=== PATIENT | male | born 1985 | race Caucasian/White ===

== ENCOUNTER 2016-04-27 18:54 | Emergency (ER) | payer MEDICAID ==
[2015-11-11 08:23] VITALS: BMI 30.9
[~2016-04-27 18:54] MED LIST: CELEXA10 MG PO; DEMEROL50 MG PO; KLONOPIN1 MG PO; NORVASC5 MG PO; OXYCONTIN30 MG PO; TRAZODONE HCL50 MG PO
== END 2016-04-27 21:15 | disposition left against medical advice (07) ==
LOC: D.ER 18:54
DX: R51 Headache (principal); M54.2 Cervicalgia

== ENCOUNTER 2016-06-28 13:40 | Emergency (ER) | payer MEDICAID ==
[2016-08-26] MEDS ORDERED: DEXILANT30 MG PO (12:50)
[2016-08-26] MEDS ORDERED: ROBAXIN500 MG PO (12:51)
[2016-08-26] MEDS ORDERED: HYDROCODON-ACE1 EAC7 PO (12:51)
== END 2016-06-28 18:05 | disposition home or self-care (01) ==
LOC: D.ER 13:40
DX: S16.1XXA Strain of muscle, fascia and tendon at neck level, initial encounter (principal); W19.XXXA Unspecified fall, initial encounter; Y93.89 Activity, other specified; Y92.018 Other place in single-family (private) house as the place of occurrence of the external cause; S39.012A Strain of muscle, fascia and tendon of lower back, initial encounter; M62.838 Other muscle spasm; F17.200 Nicotine dependence, unspecified, uncomplicated

== ENCOUNTER → 2016-07-29 10:00 | Outpatient (CLI) | payer MEDICAID ==
[2015-11-11 08:23] VITALS: BMI 30.9
== END | disposition home or self-care (01) ==
LOC: D.MRI 07-27 11:00
DX: M93.261 Osteochondritis dissecans, right knee (principal)

== ENCOUNTER 2016-08-27 05:52 | Day surgery (SDC) | payer MEDICAID ==
[2016-08-26 14:03] LABS: HEMATOCRIT 41.5 % (42.0-54.0); HEMOGLOBIN 14.1 g/dL (13.5-17.5); MCH 31.5 pg (26.0-34.0); MCV 92.6 fL (80.0-100.0); MEAN PLATELET VOLUME 9.3 fL (7.4-10.4); RBC 4.48 10x6/uL (4.20-6.10); RDW 12.9 % (11.5-14.5); WBC 6.5 10x3/uL (4.8-10.8)
[~2016-08-27] VITALS: Ht 175.3 cm; Wt 89.8 kg
--- NOTE | ~2016-08-27 | OP ---
PATIENT NAME: SITA DIANA MEDICAL RECORD: [id number] :84 LOCATION:D.OPS ADMISSION DATE: SURGEON: DEBRA RAE DATE OF OPERATION: 08/27/2016 SURGEON: DEBRA Rae DPM. PREOPERATIVE DIAGNOSES: 1. Hallux abductovalgus, left foot. 2. Sesamoiditis, left foot. POSTOPERATIVE DIAGNOSES: 1. Hallux abductovalgus, left foot. 2. Sesamoiditis tibial sesamoid, left foot. PROCEDURE: 1. Luis bunionectomy, left foot. 2. Excision of tibial sesamoid, left foot. ANESTHESIA: Local with monitored anesthesia care. HEMOSTASIS: Pneumatic ankle tourniquet inflated to 250 mmHg. ESTIMATED BLOOD LOSS: Minimal. MATERIALS: A 3-0 Vicryl, 4-0 nylon, one Giraffe Friend 2.5 x 20 mm headless Dart-Fire screw. INJECTABLES: 20 cc of 0.5% bupivacaine plain. 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 He was treated for that conservatively and did not improve with boot immobilization. We have discussed the proposed procedures. Risks and benefits were discussed. Complications were reviewed. His questions were answered. He was appropriately consented for the above-mentioned procedures. The patient was brought in the operating room and placed in the operating table in supine position. A timeout was called with Dr. Rae, who identified the patient, the surgical sites and the surgeries to be performed. Once appropriate anesthesia was obtained, the foot was prepped and draped in the usual aseptic manner. The pneumatic ankle tourniquet was inflated to 250 mmHg around the well-padded left ankle. Procedure #1: Luis bunionectomy. Attention was directed to the dorsal aspect of the first metatarsophalangeal joint where a 6 cm linear incision was made. This incision was carried deep through soft tissue with care being taken to retract all vital neurovascular structures. All bleeders were cauterized along the way. First intermetatarsal space was then entered utilizing both sharp and blunt dissection. The fibular sesamoidal ligament and the conjoined tendon of the adductor hallucis muscle were identified and sharply transected. Attention was then redirected to the dorsal aspect of the first metatarsophalangeal joint where all periosteum was reflected from the head of the first metatarsal and the OPERATIVE REPORT [id number] SITA DIANA D base of the proximal phalanx. The hypertrophied medial eminence of the first metatarsal was identified. Utilizing a sagittal saw, the hypertrophied medial eminence was resected. Next, utilizing a sagittal saw, a V-shaped osteotomy was created in the head of the first metatarsal with the apex oriented distally. This was a through and through osteotomy. The capital fragment was then translocated laterally and impacted upon the first metatarsal shaft. Next, utilizing director of surgery's recommended technique, one 2.5 mm headless screw was placed across the osteotomy. All remaining overhanging bone from the medial aspect of the first metatarsal shaft was removed with the sagittal saw. All sharp bone edges were also removed with sagittal saw. The surgical site was irrigated with copious amounts of normal sterile saline via bulb syringe. The periosteum was then reapproximated and coapted utilizing 3-0 Vicryl. The subQ was then reapproximated and coapted utilizing 3-0 Vicryl. The skin was then reapproximated and coapted using 4-0 nylon. PROCEDURE #2: Excision of tibial sesamoid, left foot. Attention was directed to the plantar surface of the left foot where a 3-cm linear incision was made directly over the tibial sesamoid. This incision was carried deep through soft tissue with care being taken to retract all vital neurovascular structures. All bleeders were cauterized along the way. The tibial sesamoid was identified at the base of this incision. Next, utilizing sharp dissection, the tibial sesamoid was sharply ____ and freed from all soft tissue attachments and passed from the field. The surgical site was then investigated for any remaining pathological tissue and none was noted. The surgical site was then irrigated with copious amounts of normal sterile saline via bulb syringe. The subQ was then reapproximated and coapted utilizing 3-0 Vicryl. The skin was then reapproximated and coapted using 4-0 nylon. The sesamoid was sent to pathology. A dressing consisting of Xeroform, 4 x 4's, Kerlix, and Hollis bandage was applied to the left foot. The pneumatic ankle tourniquet was deflated and capillary refill time is noted to be immediate to all digits of the left foot. The patient tolerated the procedure and anesthesia well. He left the operating room with vital signs stable and capillary refill time intact. The patient will be discharged home with instructions to ice and elevate the left foot. He has the boot from previous treatment and he is utilizing the boot to help offload the foot. He has my cell phone number for any after hours difficulties and there were no complications with this procedure. TRANSINT:[id number] Voice Confirmation ID: [id number] DOCUMENT ID: [id number] DEBRA REA CC: [id number] DICTATION DATE: 08/27/16 1644 PRIMER INSPECTOR: 08/28/16 0216 [facility] 08/27/16 [facility] [address] [place] [address]
[~2016-08-27 05:52] MED LIST changes: +DEXILANT30 MG PO; +HYDROCODON-ACE1 EAC7 PO; +ROBAXIN500 MG PO
[2016-08-27 11:35] VITALS: BP 133/82; Ht 175.3 cm; Wt 89.8 kg
--- NOTE | 2016-08-27 17:05 | NUR ---
1525-PT WITH HOB ELEVATED. LEFT FOOT ELEVATED WITH ICE PACK APPLIED. AT BEDSIDE. VSS. 1555-FULL LIQUIDS TOLERATED. UP OOB WITH BOOT TO LEFT FOOT, VOIDED WITHOUT DIFFICUTLY. IV D/C'D, CATHETER INTACT. 1610-DISCHARGE INSTRUCTIONS COMPLETED, PT VERBALIZED UNDERSTANDING. PAPERWORK SIGNED. 1615-PT DISCHARGED VIA WHEELCHAIR WITH .
== END 2016-08-27 16:15 | disposition home or self-care (01) ==
LOC: D.OPS 05:52 → D.PAN 11:30 → D.OPS 11:30
PROVIDERS: Anesthesiology
DX: M20.12 Hallux valgus (acquired), left foot (principal); M25.872 Other specified joint disorders, left ankle and foot; S82.892A Other fracture of left lower leg, initial encounter for closed fracture; X58.XXXA Exposure to other specified factors, initial encounter

== ENCOUNTER 2016-11-30 06:42 | Day surgery (SDC) | payer MEDICAID ==
[~2016-11-30] VITALS: Ht 175.3 cm; Wt 93.0 kg
[2016-11-30 07:19] LABS: HEMATOCRIT 43.5 % (42.0-54.0); HEMOGLOBIN 15.4 g/dL (13.5-17.5); MCH 32.6 pg (26.0-34.0); MCHC 35.4 g/dL (31.0-37.0); MCV 92.2 fL (80.0-100.0); MEAN PLATELET VOLUME 9.4 fL (7.4-10.4); RBC 4.72 10x6/uL (4.20-6.10); RDW 12.2 % (11.5-14.5); WBC 6.2 10x3/uL (4.8-10.8)
[2016-11-30] MEDS ORDERED: HYDROCODONE-APA1 TAB PO ×2 (07:30→12:25)
[2016-11-30] MEDS ORDERED: REQUIP0.5 MG PO (07:30)
[2016-11-30] MEDS ORDERED: PEPCID20 MG PO (07:31)
[2016-11-30] MEDS ORDERED: ATARAX 25 MG TA25 MG PO (07:32)
[2016-11-30 07:41] VITALS: BP 132/86; Ht 175.3 cm; Wt 93.0 kg
--- NOTE | 2016-12-03 11:31 | OP ---
PATIENT NAME: SITA DIANA MEDICAL RECORD: [id number] :83 [facility] AD[facility]ION DATE: SURGEON: CHRIS GRADY MD DATE OF OPERATION: 11/30/2016 PREOPERATIVE DIAGNOSIS: Patellofemoral syndrome. POSTOPERATIVE DIAGNOSIS: Patellofemoral syndrome. PROCEDURE: Arthroscopic lateral release of the right knee. SURGEON: Chris Grady MD. ANESTHESIA: General. INTRAOPERATIVE COMPLICATIONS: None. SUMMARY OF PATHOLOGIC FINDINGS: With the patient having prior surgery to repair a large chondral defect in his lateral patellar facet, he was in great condition with very minimal chondromalacia. He had, however, redeveloped very tight lateral retinaculum and his symptoms had begun again. He failed bracing and physical therapy. OPERATIVE SUMMARY IN DETAIL: After obtaining the appropriate preoperative orthopedic surgery consent as well as anesthetic consultation, evaluation and clearance, the patient was brought to the operating room and placed on the operating table in supine position. After general laryngeal mask was administered, tourniquet was placed about the proximal aspect of the right upper extremity. Right lower extremity was prepped and draped in routine sterile fashion. The leg was elevated and exsanguinated, tourniquet inflated to 350 mmHg. Routine inferolateral portal was established followed by superior medial portal and inferomedial portal. Diagnostic arthroscopy did reveal the above findings. Attention was turned to the lateral retinaculum to a medial portal view. Lateral retinaculum was released using the [place] tissue ablation system. Having completed this, arthroscopy portals were closed in routine interrupted fashion using 4-0 Prolene. The knee was insufflated with 30 cc of 0.25% Marcaine with epinephrine and 40 mg of Depo-Medrol. Sterile dressings were applied. Tourniquet was deflated. The patient was awakened, taken to recovery room in stable condition. All final needle and sponge counts were correct. TRANSINT:[id number] Voice Confirmation ID: [id number] DOCUMENT ID: [id number] CHRIS GRADY MD at 1131 CC: [id number] DICTATION DATE: 11/30/16 1223 BIOMEDICAL SPECIALIST: 11/30/162010 [facility] 11/30/16 [place] [address]
== END 2016-11-30 14:09 | disposition home or self-care (01) ==
LOC: D.OPS 06:42 → D.PAN 09:15 → D.OPS 11:00 → D.PAN 11:00 → D.OPS 14:09
PROVIDERS: Anesthesiology
DX: M22.2X1 Patellofemoral disorders, right knee (principal); F17.200 Nicotine dependence, unspecified, uncomplicated; I10 Essential (primary) hypertension; K44.9 Diaphragmatic hernia without obstruction or gangrene; K21.9 Gastro-esophageal reflux disease without esophagitis; Z01.812 Encounter for preprocedural laboratory examination

== ENCOUNTER → 2017-10-12 09:15 | Outpatient (CLI) | payer MEDICARE ==
[2016-11-30 07:41] VITALS: BMI 30.3
[~2017-10-12 09:15] MED LIST changes: +ATARAX 25 MG TA25 MG PO; +ATIVAN0.5 MG PO; -DEXILANT30 MG PO; +DEXILANT60 MG PO; +HYDROCODONE-APA1 TAB PO; +NORVASC10 MG PO; -NORVASC5 MG PO; +PEPCID20 MG PO; +REQUIP0.5 MG PO; +VENTOLIN HFA18 GM INH
== END | disposition home or self-care (01) ==
LOC: D.NM 09:15
DX: K21.9 Gastro-esophageal reflux disease without esophagitis (principal); R10.9 Unspecified abdominal pain

== ENCOUNTER 2017-10-28 09:55 | Day surgery (SDC) | payer MEDICARE ==
[~2017-10-28] VITALS: Ht 180.3 cm; Wt 126.1 kg
--- NOTE | ~2017-10-28 | OP ---
PATIENT NAME: SITA DIANA MEDICAL RECORD: [id number] :84 LOCATION:D[facility]OPS ADMISSION DATE: SURGEON: FLAKITO CURTIS MD DATE OF OPERATION: 10/28/2017 PREOPERATIVE DIAGNOSES: 1. Biliary dyskinesia. 2. Hypertension. POSTOPERATIVE DIAGNOSES: 1. Biliary dyskinesia. 2. Hypertension. PROCEDURE: Laparoscopic cholecystectomy. SURGEON: Flakito Curtis MD REPORT OF PROCEDURE: The patient's abdomen was prepped and draped in sterile fashion. A cutdown was made on the superior aspect of the umbilicus, 0 Vicryls were placed in the fascia bilaterally and the fascia was incised with a 15-blade. I then bluntly entered the peritoneal cavity and placed a 12-mm Yelitza port. Under direct visualization, a 5 mm trocar was placed in the epigastrium and 2 more 5-mm trocars were placed in the right subcostal region. The gallbladder was grasped and elevated. The cystic artery and cystic duct were dissected free and these were clipped proximally and distally and ligated in standard fashion. The gallbladder was then placed into an EndoCatch bag. The right upper quadrant was then irrigated out and any bleeding from the liver bed was treated with electrocautery. At this point, the ports and insufflation were then removed and the gallbladder was taken out through the umbilicus. The umbilical fascia was closed with interrupted 0 Vicryls times 3. The wounds were then irrigated out with normal saline, infused with 10 mL of 0.25% Marcaine with epinephrine. Skin incisions were then dressed appropriately. COMPLICATIONS: None. CONDITION: Stable. ANESTHESIA: General endotracheal and local. BLOOD LOSS: Minimal. TRANSINT:[id number] Voice Confirmation ID: [id number] DOCUMENT ID: [id number] FLAKITO CURTIS MD at 0918 CC: [id number] DICTATION DATE: 10/28/171956 PV INSTALLER TECH: 10/29/[address] [facility] 10/28/[address] [address]
[2017-10-28 10:17] LABS: BASOPHILS 0.3 % (0-2); EOSINOPHILS 3.7 % (0-7); HEMATOCRIT 44.1 % (42.0-54.0); HEMOGLOBIN 15.4 g/dL (13.5-17.5); IMMATURE GRANULOCYTES 0.5 % (0-5); LYMPHOCYTES 21.2 % (15-50); MCH 32.4 pg (26.0-34.0); MCHC 34.9 g/dL (31.0-37.0); MCV 92.8 fL (80.0-100.0); MEAN PLATELET VOLUME 9.5 fL (7.4-10.4); MONOCYTES 12.6 % (2-11); NEUTROPHILS 61.7 % (40-80); PLATELET COUNT 231 10x3/uL (130-400); RBC 4.75 10x6/uL (4.20-6.10); RDW 12.5 % (11.5-14.5); WBC 6.4 10x3/uL (4.8-10.8)
[2017-10-28 10:56] LABS: CALC OSMOLALITY 278 mosm/kg (275-300); CALCIUM 9.4 mg/dL (8.5-10.1); CARBON DIOXIDE 30.1 mmol/L (21.0-32.0); CHLORIDE - SERUM 100 mmol/L (98-107); GLUCOSE 101 mg/dL (74-106); POTASSIUM - SERUM 4.2 mmol/L (3.5-5.1); SODIUM 139 mmol/L (136-145); UREA NITROGEN 16 mg/dL (7-18); eGFR NON AFRICAN AMERICAN > 90 mL/min (90-120)
[2017-10-28 11:10] VITALS: BP 163/94; Ht 180.3 cm; Wt 126.1 kg
[2017-10-28] MEDS ORDERED: HYDROCODONE-APA1 TAB PO (19:54)
[2017-10-28 20:52] VITALS: BP 138/92
== END 2017-10-28 21:54 | disposition home or self-care (01) ==
LOC: D.OPS 09:55 → D.PAN 12:45 → D.M3 20:43 → D.OPS 21:54
PROVIDERS: Anesthesiology
DX: K82.8 Other specified diseases of gallbladder (principal); I10 Essential (primary) hypertension

== ENCOUNTER 2018-03-04 18:32 | Emergency (ER) | payer MEDICARE ==
[~2018-03-04] VITALS: Ht 180.3 cm; Wt 100.0 kg
[2018-03-04 18:42] VITALS: Ht 180.3 cm; Wt 100.0 kg
[2018-03-04 19:02] LABS: BASOPHILS 0.2 % (0-2); EOSINOPHILS 1.5 % (0-7); HEMATOCRIT 43.3 % (42.0-54.0); HEMOGLOBIN 15.5 g/dL (13.5-17.5); IMMATURE GRANULOCYTES 0.4 % (0-5); MCH 32.2 pg (26.0-34.0); MCHC 35.8 g/dL (31.0-37.0); MCV 89.8 fL (80.0-100.0); MEAN PLATELET VOLUME 9.5 fL (7.4-10.4); MONOCYTES 9.5 % (2-11); NEUTROPHILS 73.4 % (40-80); PLATELET COUNT 206 10x3/uL (130-400); RBC 4.82 10x6/uL (4.20-6.10); RDW 12.5 % (11.5-14.5); WBC 8.6 10x3/uL (4.8-10.8)
[2018-03-04 19:15] LABS: ALBUMIN 4.1 g/dL (3.4-5.0); ALKALINE PHOSPHATASE 109 U/L (46-116); ALT (SGPT) 125 U/L (10-68); BILIRUBIN - TOTAL 1.08 mg/dL (0.2-1.3); CALC OSMOLALITY 262 mosm/kg (275-300); CALCIUM 8.5 mg/dL (8.5-10.1); CARBON DIOXIDE 24.8 mmol/L (21.0-32.0); CHLORIDE - SERUM 94 mmol/L (98-107); CREATININE - SERUM 0.9 mg/dL (0.6-1.3); GLUCOSE 111 mg/dL (74-106); PROTEIN - SERUM 8.1 g/dL (6.4-8.2); SODIUM 131 mmol/L (136-145); UREA NITROGEN 10 mg/dL (7-18); eGFR NON AFRICAN AMERICAN > 90 mL/min (90-120)
[2018-03-04 19:31] LABS: APPEARANCE CLEAR (CLEAR); BILIRUBIN 1+ (NEGATIVE); COLOR DK YELLOW (YELLOW); GLUCOSE NEGATIVE (NEGATIVE); KETONE NEGATIVE (NEGATIVE); NITRITE NEGATIVE (NEGATIVE); PROTEIN TRACE mg/dL (NEGATIVE); SPECIFIC GRAVITY 1.025 (1.005-1.020); UROBILINOGEN NORMAL (NORMAL)
[2018-03-04 19:32] LABS: RED CELLS - URINE 0-5 /hpf (0-5); WHITE CELLS - URINE 0-5 /hpf (0-5)
[2018-03-04 19:33] LABS: BACTERIA FEW /hpf (NONE SEEN)
[2018-03-04] MEDS ORDERED: NORCO 10-325 TA1 TAB PO (23:59)
[2018-03-04] MEDS ORDERED: FLAGYL500 MG PO (23:59)
[2018-03-04] MEDS ORDERED: VALIUM 2 MG TAB2 MG PO (23:59)
[2018-03-04] MEDS ORDERED: CIPRO500 MG PO (23:59)
[2018-03-04] MEDS ORDERED: PHENERGAN25 M1 PO (23:59)
[2018-03-05 00:39] VITALS: BP 133/80
== END 2018-03-05 00:40 | disposition home or self-care (01) ==
LOC: D.ER 18:32
PROVIDERS: Family Medicine
DX: K52.9 Noninfective gastroenteritis and colitis, unspecified (principal); I10 Essential (primary) hypertension; F17.200 Nicotine dependence, unspecified, uncomplicated

== ENCOUNTER → 2018-06-16 09:22 | Outpatient (CLI) | payer MEDICARE ==
[2018-03-04 18:42] VITALS: BMI 30.7
[~2018-06-16 09:22] MED LIST changes: +CIPRO500 MG PO; +FLAGYL500 MG PO; +NORCO 10-325 TA1 TAB PO; +PHENERGAN25 M1 PO; +VALIUM 2 MG TAB2 MG PO
== END | disposition home or self-care (01) ==
LOC: D.US 06-09 10:00
PROVIDERS: ATTEND General Practice
DX: R94.5 Abnormal results of liver function studies (principal)

== ENCOUNTER → 2018-09-29 08:04 | Outpatient (CLI) | payer MEDICARE ==
[2018-03-04 18:42] VITALS: BMI 30.7
--- NOTE | 2018-10-03 18:38 | ST ---
PATIENT:SITA DIANA MEDICAL RECORD: [id number] SEX: M LOCATION:[facility] ORDER #: ADMISSION DATE: 09/29/18 AGE OF PATIENT: 33 REFERRING PHYSICIAN: INTERPRETING PHYSICIAN: ANJALI BLANCO MD DATE OF SERVICE: 09/29/2018 Nuclear Stress Test INDICATIONS: Chest pain, abnormal ECG, shortness of breath, hypertension, and hyperlipidemia. PROCEDURE IN DETAIL: He was exercised on standard Lexiscan protocol with 33 mCi sestamibi injected at peak stress, 11 mCi used previously for rest images. FINDINGS: Gated SPECT reveals a preserved ejection fraction at 61% with good wall motioning, thickening, and brightening throughout all segments. SPECT Imaging: Cardiolite was used as myocardial fusion agent. There are definite reversible changes inferiorly as well as anteriorly, which includes the basal, mid apical, and inferior segments as well as the apex itself as well and includes the basal and mid anterior segments. The degree of reversibility is mild to moderate. The amount of myocardial involved is large. OVERALL IMPRESSION: This is an abnormal nuclear stress test with reversible changes. This is an [id number] risk abnormal nuclear stress test, reversible changes anteriorly as well as inferiorly suggestive of multivessel coronary artery disease. We will proceed with coronary angiography as a followup study. TRANSINT:[id number] Voice Confirmation ID: [id number] DOCUMENT ID: [id number] ANJALI BLANCO MD at 1838 CC: DIAMANTE VOGEL MD [id number] DICTATION DATE: 09/29/18 1550 PANEL ASSEMBLER: 09/30/18 0025 [facility] CLI 09/29/18 [facility] [address] [place] [id number]
== END | disposition home or self-care (01) ==
LOC: D.HCCARDIO 08:04
PROVIDERS: ATTEND Internal Medicine Interventional Cardiology
DX: R07.9 Chest pain, unspecified (principal)

== ENCOUNTER 2018-10-17 08:11 | Outpatient (CLI) | payer MEDICARE ==
[~2018-10-17] VITALS: Ht 175.3 cm; Wt 102.3 kg
--- NOTE | ~2018-10-17 | HEMODYNAMI ---
PATIENT:SITA DIANA MEDICAL RECORD: [id number] : 83 LOCATION:[facility] ADMISSION DATE: 10/17/18 Generatedon:10/17/201810:57 Patient name: SITA DIANA Patient #: [id number] SSN: [id number] : 1985 Date of study: 10/17/2018 Page: Of Hemodynamic Procedure Report Patient Data Patient Demographics Procedure consent was obtained First Name: SITA Gender: Male Last Name: LEBRON : 1985 [facility] Initial: HOMAR Age: 33 year(s) Patient #: [id number] Race: SSN: [id number] Additional ID: [id number] Contact details Address: [facility] [address] State: [place] City: [place] Zip code: [address] Past Medical History Performed procedures and imaging results Date Procedure Procedure Results Comments Echocardiography History of disease Date Diagnosis Comments Hypertension Allergies Allergen Reaction Date Comments Reported Morphine 10/17/2018 Admission Admission Data Admission Date: 10/17/2018 Admission Time: 8:11 Arrival Date: 10/17/2018 Arrival Time: 0:00 Admit Source: Other Insurance Payor: Private health insurance [facility] #: [id number] Height (in.): 69 BSA: 2.21 (m2) Height (cm.): 175.26 BMI: 34.56 (kg/m2) Weight (lbs.): 234 Weight (kg.): 106.14 Medications upon Admission Medications Dosage Times Administered Last Remarks per Delivery Day Date and Time Statin (any) 10 mg 1 Statin (any) 20 mg 1 Current Diagnosis Diagnosis Description Stable angina Lab Results Lab Result Date: 10/17/2018 Lab Result Time: 0:00 Biochemistry Name Units Result Min Max BUN mg/dl 17 --(---*)-- 7 18 Creatinine mg/dl 1.1 --(--*-)-- 0.6 1.3 eGFR ml/min 81 *-(----)-- 90 120 NONAFRICAN CBC Name Units Result Min Max Hematocrit % 41.9 -*(----)-- 42 54 Hemoglobin g/dl 15 --(-*--)-- 13.5 17.5 Procedure Procedure Types Cath Procedure Diagnostic Procedure [facility] w/Coronaries Sedation Charges Moderate Sedation up to 15 minutes Procedure Description Procedure Date Procedure Date: 10/17/2018 Procedure Start Time: 10:44 Procedure End Time: 10:53 Procedure Staff Name Function David Pantoja MD Performing Physician Lisa Pedraza RT Monitor Darnell Peoples RT Scrub Dolly Palomares RT Scrub Steve Rollins RN Nurse Indication Angina Abnormal ECG Dyspnea with exertion Procedure Data Cath Procedure Fluoroscopy Diagnostic fluoroscopy Total fluoroscopy Time: 2.3 time: 2.3 min min Diagnostic fluoroscopy Total fluoroscopy dose: 433 dose: 433 mGy mGy Contrast Material Contrast Material Type Amount (ml) Isovue 300 50 Entry Location Entry Primary Successful Side Size Upsize Upsize Entry Closure Harris ccessful Closure Location (Fr) 1 (Fr) 2 (Fr) Remarks Device Remarks Radial Right 6 Fr Mechanical artery Short Compression Estimated blood loss: 10 ml Diagnostic catheters Device Type Used For End Catheter Placement DIAGNOSTIC [place] 110cm 5 Procedure Fr catheter ([id number]) Procedure Complications No complications Procedure Medications Medication Administration Route Dosage Oxygen etCO2 Nasal cannula 2 l/min Lidocaine 2% added to field 20 Heparin Flush Bag added to field 2 bags (1000units/500ml NS) 0.9% NaCl I.V. 100 ml/hr Radial Cocktail I.A. 1 syringe (Verapamil 2mg/Nitro 400mcg/Heparin 1500units) Versed I.V. 2 mg Fentanyl I.V. 100 mcg Versed I.V. 2 mg Fentanyl I.V. 100 mcg Versed I.V. 2 mg Fentanyl I.V. 100 mcg Versed I.V. 2 mg Hemodynamics Rest BSA: 2.21 (m2) HGB: 15 (g/dl) O2 Consumption: Estimated: 282.35 (ml/min) O2 Cons umption indexed: Estimated:127.76 (ml/min/m) Heart Rate: 80 (bpm) Snapshots Pre Cath Intra NCS Post Cath Vital Signs Time Heart Resp SPO2 etCO2 NIBP (mmHg) Rhythm Pain Sedation Rate (ipm) (%) (mmHg) Status Level (bpm) 10:29:40 74 16 100 34.5 150/104(119) NSR 0 (11) 10(A) , No pain 10:33:56 90 17 99 20.9 153/110(123) NSR 0 (11) 10(A) , No pain 10:38:06 86 11 95 39.7 135/93(119) NSR 0 (11) 10(A) , No pain 10:42:12 79 16 96 35.2 125/94(112) NSR 0 (11) 10(A) , No pain 10:46:20 85 17 93 54.7 126/86(121) NSR 0 (11) 10(A) , No pain 10:50:23 94 15 95 26.2 122/91(117) NSR 0 (11) 10(A) , No pain 10:54:31 93 13 95 38.2 126/84(114) NSR 0 (11) 10(A) , No pain Medications Time Medication Route Dose Verified Delivered Reason Notes Effectiveness by by 10:32:55 Oxygen etCO2 2 l/min David Wilson used for Nasal Kit Rollins RN procedure cannula 10:33:09 Lidocaine 2% added 20ml David Hernandez for local to vial Kit Pantoja MD anesthetic field 10:33:15 Heparin Flush added 2 bags David Hernandez used for Bag to Kit Pantoja MD procedure (1000units/500ml field NS) 10:33:24 0.9% NaCl I.V. 100 David Wilson Per ml/hr Kit Rollins RN physician 10:33:37 Radial Cocktail I.A. 1 David Hernandez for (Verapamil syringe Kit Pantoja MD vasodilation 2mg/Nitro 400mcg/Heparin 1500units) 10:34:55 Versed I.V. 2 mg David Buffie for sedation Kit Rollins RN 10:35:01 Fentanyl I.V. 100 mcg David Buffie for sedation Kit Rollins RN 10:39:45 Versed I.V. 2 mg David Buffie for sedation Kit Rollins RN 10:39:49 Fentanyl I.V. 100 mcg Davidlisa Jonesie for sedation Kit Rollins RN 10:44:06 Versed I.V. 2 mg David Buffie for sedation Kit Rollins RN 10:44:10 Fentanyl I.V. 100 mcg David Buffie for sedation Kit Rollins RN 10:48:15 Versed I.V. 2 mg David Wilson for sedation Kit Rollins RN Procedure Log Time Note 10:08:08 Informed consent obtained and on chart 10:11:11 Patient allergic to Morphine 10:11:28 Arrival Date: 10/17/2018 12:00:00 AM 10:11:56 Admit Source: Other 10:11:57 Insurance Payor : Private health insurance 10:12:05 Patient Height : 69 inches 10:12:09 Patient Weight : 234 lbs 10:14:41 Current Diagnosis : Stable angina 10:15:25 Diagnostic Cath Status : Elective 10:15:26 PCI Cath Status : Elective 10:15:53 Indication : Angina 10:16:02 Indication : Abnormal ECG 10:16:13 Indication : Dyspnea with exertion 10:18:55 Procedure Status Elective Heart Cath (OP). 10:18:56 Time tracking: Regular hours (M-F 7:00 - 5:00) 10:19:00 Plan of Care:Hemodynamics will remain stable., Cardiac rhythm will remain stable., Comfort level will be maintained., Respiratory function will remain adequate., Patient/ family verbilizes understanding of procedure., Procedure tolerated without complication., Recovers from procedure without complications.. 10:19:04 Steve Rollins RN sent for patient. Start room use. 10:21:10 Lab Result : BUN 17 mg/dl 10:21:10 Lab Result : Creatinine 1.1 mg/dl 10:21:10 Lab Result : Hemoglobin 15 g/dl 10:21:10 Lab Result : eGFR NONAFRICAN 81 ml/min 10:21:10 Lab Result : Hematocrit 41.9 % 10:24:34 Patient received from Pre/Post Procedure Room to CCL 1 Alert and oriented. Tansferred to table in Supine position. 10:24:35 Warm blankets applied, and lynn hugger turned on for patient comfort. 10:24:35 Correct patient and procedure confirmed by team. 10:24:39 ECG and BP/O2 sat monitors applied to patient. 10:30:20 Baseline sample Acquired. 10:30:24 Rhythm: sinus rhythm 10:30:26 Full Disclosure recording started 10:31:01 H&P Date Dictated: 09/15/2018 Within 30 days and on chart.. 10:31:02 Pre-procedure instructions explained to patient. 10:31:03 Pre-op teaching completed and patient verbalized understanding. 10:31:05 Family in patients room. 10:31:07 Patient NPO since Midnight. 10:31:09 Is the patient allergic to Iodine/contrast media? No. 10:31:26 Is patient on blood thinner?No 10:31:28 Patient diabetic? No. 10:31:34 Previous problem with sedation/anesthesia? No ? 10:31:36 Snore? Yes 10:31:37 Sleep apnea? No 10:31:38 Deviated septum? No 10:31:38 Opens mouth fully? Yes 10:31:39 Sticks out tongue? Yes 10:31:41 Airway obstruction? No ? 10:31:42 Dentures? No ? 10:31:45 Pre procedure: right dorsailis pedis pulse 1+ Palpable, but thready & weak; easily obliterated 10:31:47 Modified Basil's test Ulnar < 7 seconds 10:31:50 Patient pain scale 0/10 ?. 10:31:55 IV patent on arrival in right forearm with 0.9% NaCl at O. 10:31:57 Lab results completed and on chart. 10:32:04 Right Radial & Right Groin area was prepped with chlora-prep and draped in sterile fashion 10:32:05 Alarms reviewed by R. N. 10:32:06 Sharps counted by scrub and verified by R.N. 10:32:43 Use device set Radial Dx or PCI 10:32:45 Tegaderm 4 x 4 (1626W) opened to sterile field. 10:32:47 ACIST Syringe (27480) opened to sterile field. 10:32:47 Medline Cath Pack ([id number]) opened to sterile field. 10:32:47 Bag Decanter () opened to sterile field. 10:32:48 ACIST Hand Control (86810) opened to sterile field. 10:32:49 ACIST Manifold (63621) opened to sterile field. 10:32:49 MBrace Wrist Support ([id number]) opened to sterile field. 10:32:51 EMERALD Guide Wire (518-754) opened to sterile field. 10:32:51 SHEATH 6FR RAIN ([id number]) opened to sterile field. 10:32:55 Oxygen 2 l/min etCO2 Nasal cannula was administered by Steve Rollins RN; used for procedure; 10:33:09 Lidocaine 2% 20ml vial added to field was administered by David Pantoja MD; for local anesthetic; 10:33:15 Heparin Flush Bag (1000units/500ml NS) 2 bags added to field was administered by David Pantoja MD; used for procedure; 10:33:24 0.9% NaCl 100 ml/hr I.V. was administered by Steve Rollins RN; Per physician; 10:33:36 --------ALL STOP TIME OUT------ 10:33:37 Radial Cocktail (Verapamil 2mg/Nitro 400mcg/Heparin 1500units) 1 syringe I.A. was administered by David Pantoja MD; for vasodilation; 10:33:37 Final Timeout: patient, procedure, and site verified with staff and physician. All members of the team are in agreement. 10:33:39 Right Radial & Right Groin site verified by team. 10:33:43 Fire Safety Assessment: A--An alcohol-based skin anteseptic being used preoperatively., C--Open oxygen or nitrous oxide is being used., D--An ESU, laser, or fiber-optic light is being used. 10:33:47 Physical assessment completed. ASA score P 2 - A patient with mild systemic disease as per David Pantoja MD. 10:34:23 2) 60-89 Mildly reduced kidney function, and other findings (as for stage 1) point to kidney disease. 10:34:27 Maximum allowable contrast dose (3.7 X eGFR X 0.75)225 ml. 10:34:31 Sedation plan: IV Moderate Sedation Medication:Versed, Fentanyl 10:34:55 Versed 2 mg I.V. was administered by Steve Rollins RN; for sedation; 10:35:01 Fentanyl 100 mcg I.V. was administered by Steve Rollins RN; for sedation; 10:39:45 Versed 2 mg I.V. was administered by Steve Rollins RN; for sedation; 10:39:49 Fentanyl 100 mcg I.V. was administered by Steve Rollins RN; for sedation; 10:43:18 Zero performed for pressure channel P1 10:44:04 Procedure started. 10:44:06 Versed 2 mg I.V. was administered by Steve Rollins RN; for sedation; 10:44:10 Fentanyl 100 mcg I.V. was administered by Steve Rollins RN; for sedation; 10:44:16 Local anesthetic to right radial artery with Lidocaine 2% by David Pantoja MD.INITIAL ACCESS ONLY 10:45:32 A 6 Fr Short sheath was inserted into the Right Radial artery 10:46:26 A DIAGNOSTIC [place] 110cm 5 Fr catheter ([id number]) was advanced over the wire and used for Procedure. 10:47:31 LV gram done using MYLES 10:47:38 Injector settings: Ml/sec: 5, Volume: 15, 10:47:43 EF : 55 % 10:48:02 RCA angiography performed. 10:48:15 Versed 2 mg I.V. was administered by Steve Rollins RN; for sedation; 10:48:41 UNABLE TO ENGAGE LCA 10:48:50 Catheter exchanged over wire. 10:49:10 GUIDE 6FR XBLAD 3.5 catheter ([id number]) opened to sterile field. 10:49:28 6 Fr XBLAD 3.5 guide catheter was inserted over the wire 10:50:34 LCA angiography performed. 10:50:35 Catheter removed. 10:50:52 Procedure ended.(Physican Out) 10:51:16 Sheath removed intact; hemostasis achieved with Mechanical Compression to the Right Radial artery. 10:51:46 Fluoroscopy time 02.30 minutes. 10:51:50 Fluoroscopy dose: 433 mGy 10:51:50 Flurop Dose total: 433 10:51:57 Dose Area Product 65185 mGy/cm. 10:52:01 Cumulative Air Kerma 433mGy. 10:52:06 Contrast amount:Isovue 300 50ml. 10:52:09 Maximum allowable dose exceeded? No. 10:52:09 Sharps counted by scrub and verified by R.N. 10:52:17 TR BAND Large ([id number]) opened to sterile field. 10:52:42 TR band inflated with 10cc of air. 10:52:45 Post-procedure physical assessment completed. ASA score P 2 - A patient with mild systemic disease as per David Pantoja MD. 10:52:47 Post procedure rhythm: sinus rhythm 10:52:50 Estimated blood loss: 10 ml 10:52:51 Post procedure instruction explained to patient.Patient verbalizes understanding. 10:52:52 Patient needs reinforcement of post procedure teaching. 10:53:28 Procedure type changed to Cath procedure, Diagnostic procedure, LHC, LHC w/Coronaries, Sedation Charges, Moderate Sedation up to 15 minutes 10:53:45 Procedure and supply charges have been captured, reviewed, submitted and are correct. 10:53:47 Procedure Complication : No complications 10:53:49 Vital chart was stopped 10:53:50 See physician's report for complete and final results. 10:53:53 Report given to Pre/Post Procedure Room. 10:53:56 Patient transfered to Pre/Post Procedure Room with Bed. 10:53:58 Procedure ended. 10:53:58 Full Disclosure recording stopped 10:54:00 End room use (Document Last) Device Usage Item Name Manufacture Quantity Catalog Hospital Part Current Minima l Lot# / Number Charge Number Stock Stock Serial# Code Tegaderm 4 3M 1 1626W [id number] 5 x 4 (1626W) ACIST Acist 1 53741 138735 526351 [id number] 20 Syringe Medical (82200) Systems Inc Medline Medline 1 [id number] 037300 09949 564278 5 Cath Pack ([id number]) Bag Microtek 1 2001S 674928 16934 672158 5 Decanter Medical Inc. () ACIST Hand Acist 1 63198 602243 333099 969585 5 Control Medical (85399) Systems Inc ACIST Acist 1 40268 336361 947413 320225 5 Manifold Medical (29805) Systems Inc MBrace Advanced 1 [id number] 366869 72216 896883 5 Wrist Vascular Support Dynamics (325243557) EMERALD Cardinal 1 502-455 824127 691559 887198 5 Guide Wire Health (502455) SHEATH 6FR Cardinal 1 [id number] 757665 5900618 735146 5 [facility] (5013653) DIAGNOSTIC Terumo 1 40-1763 617130 686172 207034 5 [place] 110cm 5 Fr catheter (855019) GUIDE 6FR Cardinal 1 [id number] 075852 187387 776528 10 XBLAD 3.5 Health catheter (19062844) TR BAND Terumo 1 [id number] 254485 127351 628200 40 Large ([id number]) Signature Audit [place] Stage Time Signature Unsigned Intra-Procedure 10/17/2018 Lisa Pedraza 10:57:30 AM RT(R) Signatures Performing Physician : Signature : David Pantoja MD Date : Time : Monitor : Lisa Pedraza Signature : RT Date : Time : Nurse : Steve Rollins RN Signature : Date : Time : [address] [place] [address]
--- NOTE | ~2018-10-17 | OP ---
PATIENT NAME: SITA DIANA MEDICAL RECORD: [id number] :83 LOCATION:[facility] ADMISSION DATE: SURGEON: ANJALI BLANCO MD DATE OF OPERATION: 10/17/2018 PROCEDURES: 1. Left heart catheterization. 2. Selective coronary angiography. 3. Left ventriculogram. PROCEDURE IN DETAIL: After informed consent was obtained and after a detailed description of the risks, benefits as well as alternative therapies, the patient elected to proceed with angiogram and heart catheterization. The right radial area was prepped and draped in normal sterile fashion. Right radial artery was cannulated via modified Seldinger technique with placement of 5-Urdu sheath. All catheters exchanged through this sheath. FINDINGS: Left ventriculogram was performed in a standard 30-degree MYLES view, reveals good cardiac wall motion, ejection fraction is 60%. SELECTIVE CORONARY ANGIOGRAPHY: Left main, left anterior descending, left circumflex, right coronary artery are smooth-walled vessels with no angiographic evidence of coronary artery disease. OVERALL IMPRESSION: 1. No angiographic evidence of coronary artery disease. 2. Normal left heart pressures. 3. Normal left ventricular systolic function. Chest pain is noncardiac in etiology. Nuclear stress test was false positive, no other cardiac workup or treatment is necessary. TRANSINT:[id number] Voice Confirmation ID: [id number] DOCUMENT ID: [id number] ANJALI BLANCO MD CC: [id number] DICTATION DATE: 10/17/18 1053 IMPORT MANAGER: 10/17/18 1324 DEP CLI 10/17/18 [place] [address]
[2018-10-17 08:37] VITALS: BP 144/95; Ht 175.3 cm; Wt 102.3 kg
[2018-10-17 09:08] LABS: BASOPHILS 0.5 % (0-2); EOSINOPHILS 3.3 % (0-7); HEMATOCRIT 41.9 % (42.0-54.0); IMMATURE GRANULOCYTES 0.3 % (0-5); LYMPHOCYTES 27.2 % (15-50); MCH 31.7 pg (26.0-34.0); MCHC 35.8 g/dL (31.0-37.0); MCV 88.6 fL (80.0-100.0); MEAN PLATELET VOLUME 9.5 fL (7.4-10.4); MONOCYTES 11.1 % (2-11); NEUTROPHILS 57.6 % (40-80); PLATELET COUNT 210 10x3/uL (130-400); RBC 4.73 10x6/uL (4.20-6.10); RDW 12.6 % (11.5-14.5); WBC 6.2 10x3/uL (4.8-10.8)
[2018-10-17 09:09] LABS: CALC OSMOLALITY 274 mosm/kg (275-300); CALCIUM 8.9 mg/dL (8.5-10.1); CARBON DIOXIDE 25.7 mmol/L (21.0-32.0); CHLORIDE - SERUM 101 mmol/L (98-107); CREATININE - SERUM 1.1 mg/dL (0.6-1.3); GLUCOSE 109 mg/dL (74-106); POTASSIUM - SERUM 4.2 mmol/L (3.5-5.1); SODIUM 136 mmol/L (136-145); UREA NITROGEN 17 mg/dL (7-18); eGFR NON AFRICAN AMERICAN 81 mL/min (90-120)
== END 2018-10-17 13:00 | disposition home or self-care (01) ==
LOC: D.CATH 08:11
PROVIDERS: ATTEND Internal Medicine Interventional Cardiology
DX: R07.89 Other chest pain (principal); Z01.812 Encounter for preprocedural laboratory examination

== ENCOUNTER 2020-09-21 01:12 | Emergency (ER) | payer MEDICARE ==
[~2020-09-21] VITALS: Ht 175.3 cm; Wt 107.3 kg
[2020-09-21 01:17] VITALS: BP 138/86; Ht 175.3 cm; Wt 107.3 kg
[2020-09-21] MEDS ORDERED: STERAPRED DS 1010 MG PO (02:23)
[2020-09-21] MEDS ORDERED: EPIPEN 2-P0.3 MG/0.3 IM (02:23)
== END 2020-09-21 02:20 | disposition home or self-care (01) ==
LOC: D.ER 01:12
DX: L50.9 Urticaria, unspecified (principal); T78.40XA Allergy, unspecified, initial encounter; I10 Essential (primary) hypertension; K21.9 Gastro-esophageal reflux disease without esophagitis; Z72.0 Tobacco use